=== PATIENT | female | born 1960 | race Caucasian/White ===

== ENCOUNTER 2018-06-02 17:11 | Emergency (ER) | payer MEDICARE ==
[2018-06-02 17:33] LABS: Clarity Clear (Clear)
[2018-06-02 17:34] LABS: Bilirubin Negative (Negative); Blood, Urine Moderate (Negative); Glucose, Urine (Dipstick) Negative (Negative); Leukocyte Negative (Negative); Nitrite Negative (Negative); Protein, Urine (Dipstick) Negative (Neg-Trace); RBC/HPF 0-3 HPF (0-3); Specific Gravity, Urine 1.006 (1.005-1.030); Squamous Epithelial 0-3 HPF (0-3); Urobilinogen 0.2 mg/dL (0.2-1.0); WBC/HPF 0-3 HPF (0-3)
[2018-06-02 17:35] LABS: Bacteria/HPF Rare-Few HPF (None Seen)
[2018-06-02 18:09] LABS: #Basophils 0.1 thou/uL (0.0-0.2); #Eosinphils 0.1 thou/uL (0.0-0.7); #Lymphocytes 1.2 thou/uL (1.20-3.40); #Monocytes 0.8 thou/uL (0.11-0.59); #Neutrophils 8.2 thou/uL (1.40-6.50); %Basophils 1.3 % (0.0-1.0); %Eosinophils 1.1 % (0.0-10.0); %Lymphocytes 11.8 % (21.0-51.0); %Monocytes 7.3 % (0.0-10.0); %Neutrophils 78.5 % (42.0-75.0); Hemoglobin 12.9 g/dL (12.0-16.0); Mean Corpuscular HGB CONC 34.4 g/dL (32.0-36.0); Mean Corpuscular Hemoglobin 33.5 pg (27.0-31.0); Mean Corpuscular Volume 97.2 fL (78.0-98.0); Platelet Count 209 thou/uL (130-400); RBC Distribution Width 11.4 % (11.5-14.5); Red Blood Cell (RBC) Count 3.86 mill/uL (4.20-5.40); White Blood Cell (WBC) Count 10.5 thou/uL (4.8-10.8)
[2018-06-02 18:13] LABS: INR-International Normal Ratio 0.9; PTT 25.6 SEC (22.9-36.1)
[2018-06-02 18:19] LABS: ALT (SGPT) 33 U/L (8-55); AST (SGOT) 25 U/L (5-34); Albumin 4.5 g/dL (3.5-5.0); Alkaline Phosphatase 112 U/L (40-150); Anion Gap 14 mmol/L (10-20); BUN (Urea Nitrogen) 11 mg/dL (9.8-20.1); Bilirubin, Total 0.6 mg/dL (0.2-1.2); Calc. Creatinine Clearance 0 mL/min (70-130); Calcium 9.5 mg/dL (7.8-10.44); Carbon Dioxide 24 mmol/L (22-29); Chloride 101 mmol/L (98-107); Estimated GFR-MDRD 61; Globulin 2.6 g/dL (2.4-3.5); Glucose 90 mg/dL (70-105); Potassium 3.7 mmol/L (3.5-5.1); Protein, Total 7.1 g/dL (6.0-8.3); Sodium 135 mmol/L (136-145)
[2018-06-02] MEDS ORDERED: Ciprofloxacin 500 MG TAB ONE (19:36)
--- NOTE | 2018-06-02 20:44 | CT ---
CT ABDOMEN AND PELVIS WITH CONTRAST: 06/02/[address] of the abdomen and pelvis was performed for evaluation of lower abdominal pain. There is al so a history of dysuria. Axial slices were acquired, then coronal and sagittal reconstructions were d one. The lung bases are clear. The liver, spleen, pancreas, and gallbladder showed no acute findings. Ther e was prominence to the size of the gallbladder, but it does not appear to have any stones. The right adrenal gland appears normal. The left adrenal gland has a 1.7 cm mass in it. Its internal density w as measured at 20 units (of course being postcontrast). I looked back at a 2014 CT angio of the chest and was actually able to see the left adrenal mass was present then and has not changed at all in si ze over the interval. Its internal density is the same. While a formal scan without contrast would be needed to prove it to be an adenoma, given the complete lack of change management administrator a four year period, it i s highly probable that that is what this is. The kidneys both appear normal. There is some calcificat ion in the aorta, but no aneurysm. There is no distention of bowel to suggest obstruction. There were no signs of diverticulitis, howeve r, the wall of the left colon seems somewhat thick. It is difficult to see well without enteric contr ast, however, colitis is suspected. No free air or free fluid was seen. CT of the pelvis was remarkable for some mild concentric thickening of the urinary bladder wall. This is true in spite of it being well distended. The possibility of cystitis is raised. On the sagittal view, one sees that there is a severe grade II spondylolisthesis of L5 on S1 with dis c space narrowing at this level. IMPRESSION: 1. Suspicious for left colitis. 2. Possible cystitis. 3. Severe grade II spondylolisthesis of L5 on S1. 4. 1.7 cm left adrenal mass that was present in 2014 and has not changed at all in the interval. POS: HOME
== END 2018-06-02 20:00 | disposition home or self-care (01) ==
LOC: BURERS 17:11
DX: K52.9 Noninfective gastroenteritis and colitis, unspecified (principal); J45.909 Unspecified asthma, uncomplicated; D46.9 Myelodysplastic syndrome, unspecified; F32.9 Major depressive disorder, single episode, unspecified; F17.290 Nicotine dependence, other tobacco product, uncomplicated; Z79.899 Other long term (current) drug therapy; F41.9 Anxiety disorder, unspecified
CPT/HCPCS: 74177; 80053; 81003; 81015; 82274; 85025; 85610; 85730; 87045; 87046; 87449; 87899

== ENCOUNTER 2018-10-20 13:26 | Emergency (ER) | payer MEDICARE | END 2018-10-20 14:06 | disposition home or self-care (01) | LOC: BURERS 13:26 | DX: J01.90 Acute sinusitis, unspecified (principal); J20.9 Acute bronchitis, unspecified; F41.9 Anxiety disorder, unspecified; F17.290 Nicotine dependence, other tobacco product, uncomplicated | CPT/HCPCS: 99283 ==

== ENCOUNTER 2019-07-25 16:52 | Emergency (ER) | payer MEDICARE ==
[2019-07-25] MEDS ORDERED: Dicyclomine 20 MG TAB ONE (17:40)
[2019-07-25 17:43] LABS: #Basophils 0.1 thou/uL (0.0-0.2); #Eosinphils 0.2 thou/uL (0.0-0.7); #Lymphocytes 1.3 thou/uL (1.20-3.40); #Monocytes 0.6 thou/uL (0.11-0.59); #Neutrophils 4.4 thou/uL (1.40-6.50); %Basophils 1.4 % (0.0-1.0); %Eosinophils 3.1 % (0.0-10.0); %Lymphocytes 19.9 % (21.0-51.0); %Monocytes 8.5 % (0.0-10.0); %Neutrophils 67.2 % (42.0-75.0); Hemoglobin 12.8 g/dL (12.0-16.0); Mean Corpuscular HGB CONC 33.4 g/dL (32.0-36.0); Mean Corpuscular Hemoglobin 32.4 pg (27.0-31.0); Mean Corpuscular Volume 97.1 fL (78.0-98.0); Mean Platelet Volume 7.5 fL (7.4-10.4); Platelet Count 195 thou/uL (130-400); RBC Distribution Width 11.1 % (11.5-14.5); Red Blood Cell (RBC) Count 3.95 mill/uL (4.20-5.40); White Blood Cell (WBC) Count 6.6 thou/uL (4.8-10.8)
[2019-07-25 17:55] LABS: ALT (SGPT) 24 U/L (8-55); AST (SGOT) 16 U/L (5-34); Albumin 4.4 g/dL (3.5-5.0); Alkaline Phosphatase 106 U/L (40-110); Anion Gap 14 mmol/L (10-20); BUN (Urea Nitrogen) 7 mg/dL (9.8-20.1); Bilirubin, Total 0.5 mg/dL (0.2-1.2); Calc. Creatinine Clearance 0 mL/min (70-130); Calcium 9.5 mg/dL (7.8-10.44); Carbon Dioxide 24 mmol/L (22-29); Chloride 107 mmol/L (98-107); Estimated GFR-MDRD 67; Globulin 2.7 g/dL (2.4-3.5); Glucose 82 mg/dL (70-105); Lipase 9 U/L (8-78); Magnesium 1.9 mg/dL (1.6-2.6); Potassium 3.5 mmol/L (3.5-5.1); Protein, Total 7.1 g/dL (6.0-8.3); Sodium 141 mmol/L (136-145)
[2019-07-25 18:02] LABS: Bilirubin Negative (Negative); Blood, Urine Small (Negative); Clarity Clear (Clear); Glucose, Urine (Dipstick) Negative (Negative); Leukocyte Trace (Negative); Nitrite Negative (Negative); Protein, Urine (Dipstick) Negative (Neg-Trace); Urobilinogen 0.2 mg/dL (Less than 2)
[2019-07-25 18:25] LABS: Bacteria/HPF Rare-Few HPF (None Seen); RBC/HPF 0-3 HPF (0-3); Squamous Epithelial 0-3 HPF (0-3); WBC/HPF 0-3 HPF (0-3)
== END 2019-07-25 18:50 | disposition home or self-care (01) ==
LOC: BURERS 16:52
DX: K52.9 Noninfective gastroenteritis and colitis, unspecified (principal); F41.9 Anxiety disorder, unspecified; J45.909 Unspecified asthma, uncomplicated; F17.290 Nicotine dependence, other tobacco product, uncomplicated
CPT/HCPCS: 36415; 80053; 81003; 81015; 83690; 83735; 85025; 96360